=== PATIENT | male | born 1955 | race Caucasian/White ===

== ENCOUNTER → 2016-12-05 | Outpatient (CLI) | payer BC, OTHER ==
[~2016-12-05] MED LIST: ASCRIPTIN 325325 MG; COREG CR20 MG; LANOXIN 0.120.125 M1; LOSARTAN POTAS100 MG; PACERONE100 MG
== END ==
LOC: ULTRA 09:02 → EDSTATUS 14:58
DX: K40.90 Unilateral inguinal hernia, without obstruction or gangrene, not specified as recurrent (principal)